=== PATIENT | male | born 1970 | race Caucasian/White ===

== ENCOUNTER → 2016-08-13 | Outpatient (CLI) | payer OTHER ==
[~2016-08-13] MED LIST: ZOFRAN ODT4 MG PO
== END ==
LOC: ZCOL.LAB 12:51
DX: L03.115 Cellulitis of right lower limb (principal)

== ENCOUNTER → 2017-11-13 | Outpatient (CLI) | payer BC | LOC: COL.RAD 07:31 | DX: M99.73 Connective tissue and disc stenosis of intervertebral foramina of lumbar region (principal); D75.89 Other specified diseases of blood and blood-forming organs; M54.16 Radiculopathy, lumbar region ==

== ENCOUNTER → 2017-11-17 | Outpatient (CLI) | payer BC | LOC: COL.RAD 09:59 | DX: E04.2 Nontoxic multinodular goiter (principal) ==

== ENCOUNTER 2018-09-03 16:22 | Inpatient (IN) | payer BC ==
[~2018-09-03] VITALS: Ht 182.9 cm; Wt 124.1 kg
[2018-09-09] VITALS (12 sets, daily range): BP systolic 106–145; BP diastolic 56–86; PULSE 70–108; TEMP 98.3–100.1
[2018-09-09] MEDS ORDERED: SYNTHROID0.125 MG/T PO (06:06)
[2018-09-09] MEDS ORDERED: PROSCAR 5MG5 MG PO (06:06)
[2018-09-09] MEDS ORDERED: FLOMAX 0.40.4 MG/CAP PO (06:06)
--- NOTE | 2018-09-09 06:30 | NUR ---
The patient ambulated back to [place] [facility] independently using a steady gait and appeared to tolerate the activity well. Vital signs obtained. Consent signed. 18G IV started in left hand with one stick, LR infusing without difficulty. Heart Reg. Lungs clear. Bowel sounds audible. Flagyl IV started at this time. Call light is within reach. at bedside at this time. The patient denies any further needs at this time. Will continue to monitor the patient.
--- NOTE | 2018-09-09 13:27 | NUR ---
Patient post op to room 350. Report from pacu nurse. Patient drowsy. Vss on O2. Patient reports feeling the urge to have bm. Patient assisted to the bathroom, gaitbelt used, he was a little unsteady on his feet. No sucess, encouraged him to not strain. 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 Abdominal robotic sites open to air edges wellapproximated. Tolerating water & ice chips without nausea. Scds ble. Will monitor.
--- NOTE | 2018-09-09 19:38 | NUR ---
Patient has done well post op. Vss on room air. He has tolerated clear liquids, no n/v. He ambulated the halls & did well. Tylenol for pain management per [facility] protocol. Ivf & antibioitcs per orders. Scds. Abdomen soft & rounded. Lap site x 3 & low transverse incision, edges well approximated. Denies yet passing flatus. bedside report to night nurse
--- NOTE | 2018-09-09 20:45 | NUR ---
PT IN BED WITH HOB AT 45 DEGREE ANGLE. PT DENIES PAIN OR DISCOMFORT.PT IS CHEWING GUM DIRECTED. PT REFUSES TO WALK TONIGHT. PT WANTS TO WAIT TILL MORNING. PT HAS 3 INCISIONS ON HIS RIGHT SIDE OF ABDOMEN AND A MIDLINE THAT HAVE NO S/S OF INFECTION. PT HAS NO NEEDS AT THIS TIME, CALL LIGHT WITHIN REACH.
[2018-09-10 00:26] VITALS: BP 112/62; PULSE 97; TEMP 98.7
--- NOTE | 2018-09-10 02:14 | NUR ---
PT IN BED WITH HOB ELEVATED TO 45 DEGREE ANGLE. PT HAD C/O PAIN AROUND 0000 AND HAD SCHEDULED TYLENOL. ADVISED PT THAT IF TYLENOL DOES NOT RELIEVE PAIN TO LET ME KNOW. PT HAS BEEN SLEEPING AND NO FURTHER C/O PAIN. PT HAS CALL LIGHT WITHIN REACH.
[2018-09-10 04:30] VITALS: BP 95/61; PULSE 91; TEMP 97.9
--- NOTE | 2018-09-10 13:28 | NUR ---
SW met with patient to discuss discharge planning. Patient lives independently at home with his . Patient's PCP is Dr Jordan and [facility] Patient does not use any DME or home health services. Patient does not have a DPOA and is not interested in that at this time. SW does not anticipate any discharge needs.
[2018-09-11 08:00] VITALS: BP 132/71; PULSE 102; TEMP 98.3
[2018-09-11 12:00] VITALS: BP 131/80; PULSE 93; TEMP 97.8
[2018-09-11 15:01] LABS: HEMATOCRIT 41.3 % (42.0-52.0)
[2018-09-11 15:34] LABS: CREATININE, serum 0.88 mg/dL (0.66-1.25); PHOSPHOROUS 2.5 mg/dL (2.5-4.5)
[2018-09-11 16:59] VITALS: BP 116/70; PULSE 92; TEMP 98.2
--- NOTE | 2018-09-11 17:13 | NUR ---
Patient doing much better this afternoon. Pain managed with ultram & tylenol. Orders for ultram was obtained this moring & given per orders & relieved pain. Patient up and ambulated the halls and did well. Tolerating diet. He has had 2 BMs today. Slightly blood tinged. Guzman to DD with adequate urine output, sediment was noted. Abdominal incisions edges well approximated. Plans for dischage this eveing.
--- NOTE | 2018-09-11 18:48 | NUR ---
Patient ready for discharge. His here to take him home. All discharge teaching given to patient & his . Patient reports pain well managed with Ultram- dose given before discharge. Scripts were all called into pharmacy & script for norco sent with patient to be filled if needed. We reviewed medication safety & home med list. We discussed follow up appt & incisions care & signs & symptoms of when to call the doctor. Patient given lozano teaching. He was able to demonstrate leg bag teached & verbalized understanding. Patient wheeled out with all belongings. His taking him home.
== END 2018-09-11 18:53 | disposition home or self-care (01) | DRG 330 ==
LOC: INPTSU 09-09 05:36 → SURG 09-09 07:30
PROVIDERS: ADMIT Surgery
PROC: 8E0W4CZ Robotic Assisted Procedure of Trunk Region, Percutaneous Endoscopic Approach (ICD-10-PCS; 2018-09-09)
PROC: 0DTN4ZZ Resection of Sigmoid Colon, Percutaneous Endoscopic Approach (ICD-10-PCS; principal; 2018-09-09 07:30)
DX: K63.2 Fistula of intestine (principal); N32.1 Vesicointestinal fistula; N40.0 Benign prostatic hyperplasia without lower urinary tract symptoms; Z85.820 Personal history of malignant melanoma of skin; Z23 Encounter for immunization
CPT/HCPCS: A4216; A4314; J0696; J0780; J1100; J1650; J1885; J2405; J2550; J2704; J2710; J2765; J3010; J7120

== ENCOUNTER 2018-11-05 19:05 | Emergency (ER) | payer OTHER ==
[~2018-11-05] VITALS: Ht 182.9 cm; Wt 127.3 kg
[~2018-11-05 19:05] MED LIST changes: +FLOMAX 0.40.4 MG/CAP PO; +PROSCAR 5MG5 MG PO; +SYNTHROID0.125 MG/T PO
[2018-11-05 19:11] VITALS: TEMP 97.8
[2018-11-05 21:09] VITALS: BP 116/79; PULSE 81
== END 2018-11-05 21:09 | disposition home or self-care (01) ==
LOC: COL.ER 19:05
DX: S06.0X0A Concussion without loss of consciousness, initial encounter (principal); S01.312A Laceration without foreign body of left ear, initial encounter; V86.59XA Driver of other special all-terrain or other off-road motor vehicle injured in nontraffic accident, initial encounter

== ENCOUNTER 2018-11-14 14:38 | Emergency (ER) | payer OTHER ==
[2018-11-14 14:57] VITALS: BP 127/76; PULSE 80; TEMP 97.8
== END 2018-11-14 14:59 | disposition home or self-care (01) ==
LOC: COL.ER 14:38
DX: S01.312D Laceration without foreign body of left ear, subsequent encounter (principal); X58.XXXD Exposure to other specified factors, subsequent encounter

== ENCOUNTER → 2019-03-17 | Outpatient (CLI) | payer BC ==
[2019-03-17 16:52] LABS: BASO # 0.1 (0.0-0.2); BASO % 0.7 % (0.0-2.0); EOS # 0.4 (0.0-0.7); EOS % 3.1 % (0-4.0); GRAN % 67.2 % (42.2-75.2); HEMATOCRIT 47.3 % (42.0-52.0); LYMPH # 2.6 (1.2-3.4); LYMPH % 22.2 % (20.0-51.0); MEAN CELL VOLUME 86 fl (80.0-100.0); MEAN CORPUSCULAR HEMOGLOBIN 29 pg (27.0-31.0); MEAN CORPUSCULAR HGB CONC 34 g/dl (33.0-37.0); MEAN PLATELET VOLUME 9.8 fl (7.4-10.4); MONO # 0.8 (0.1-0.6); MONO % 6.5 % (1.7-9.3); PLATELET COUNT 285 K/mm3 (130-400); RED BLOOD COUNT 5.49 M/mm3 (4.20-5.60); REDCELL DISTRIBUTION WIDTH-CV 12.5 % (11.5-14.5)
[2019-03-17 17:01] LABS: ALBUMIN 4.7 gm/dL (3.5-5.0); CALCIUM 9.7 mg/dL (8.4-10.2); CREATININE, serum 0.98 (0.66-1.25); TOTAL PROTEIN 7.9 gm/dL (6.4-8.2)
== END ==
LOC: COL.RAD 16:20
PROVIDERS: Emergency Medicine
DX: Z01.812 Encounter for preprocedural laboratory examination (principal); K63.89 Other specified diseases of intestine; K57.30 Diverticulosis of large intestine without perforation or abscess without bleeding; Z90.49 Acquired absence of other specified parts of digestive tract
CPT/HCPCS: Q9967

== ENCOUNTER 2020-04-12 06:41 | Emergency (ER) | payer BC ==
[~2020-04-12] VITALS: Ht 182.9 cm; Wt 122.7 kg
[2020-04-12 06:46] VITALS: TEMP 97.6
[2020-04-12 07:13] LABS: BASO # 0.1 (0.0-0.2); BASO % 0.5 % (0.0-2.0); EOS # 0.3 (0.0-0.7); EOS % 3.6 % (0-4.0); GRAN # 6.7 (1.4-6.5); GRAN % 72.4 % (42.2-75.2); HEMOGLOBIN 14.6 g/dl (13.5-18.0); LYMPH # 1.5 (1.2-3.4); LYMPH % 16.6 % (20.0-51.0); MEAN CELL VOLUME 86 fl (80.0-100.0); MEAN CORPUSCULAR HEMOGLOBIN 29 pg (27.0-31.0); MEAN CORPUSCULAR HGB CONC 34 g/dl (33.0-37.0); MONO # 0.6 (0.1-0.6); MONO % 6.5 % (1.7-9.3); PLATELET COUNT 288 K/mm3 (130-400); RED BLOOD COUNT 4.99 M/mm3 (4.20-5.60); REDCELL DISTRIBUTION WIDTH-CV 12.9 % (11.5-14.5)
[2020-04-12 07:32] LABS: ALANINE AMINOTRANSFERASE 36 U/L (4-49); ALBUMIN 4.2 gm/dL (3.5-5.0); ALKALINE PHOSPHATASE 59 U/L (50-136); ANION GAP 7 mmol/L (7-16); AST,SGOT 32 U/L (15-37); BILIRUBIN,TOTAL 0.8 mg/dL (0.0-1.0); BLOOD UREA NITROGEN 14 mg/dL (9-20); CARBON DIOXIDE 27 mmol/L (22-30); CHLORIDE 104 mmol/L (98-107); CREATINE KINASE 92 U/L (55-170); CREATININE, serum 0.88 (0.66-1.25); GLUCOSE 124 mg/dL (74-106); LIPASE 104 U/L (23-300); POTASSIUM 4.1 mmol/L (3.4-5.0); SODIUM 138 mmol/L (137-145); TOTAL PROTEIN 7.1 gm/dL (6.4-8.2)
[2020-04-12 07:45] LABS: TROPONIN-I < 0.012 ng/mL (0.000-0.035)
[2020-04-12] MEDS ORDERED: PROTONIX 40MG T40 MG PO (08:35)
[2020-04-12 08:53] VITALS: BP 113/81; PULSE 74
== END 2020-04-12 08:55 | disposition home or self-care (01) ==
LOC: COL.ER 06:41
PROVIDERS: Emergency Medicine
DX: K21.9 Gastro-esophageal reflux disease without esophagitis (principal); E03.9 Hypothyroidism, unspecified; Z79.890 Hormone replacement therapy; Z82.49 Family history of ischemic heart disease and other diseases of the circulatory system